=== PATIENT | female | born 1965 | race Caucasian/White ===

== ENCOUNTER 2017-12-15 11:48 | Emergency (ER) | payer BC ==
[2017-12-15 12:21] LABS: PTT 27.4 SEC (22.9-36.1); Prothrombin Time 13.2 SEC (12.0-14.7)
[2017-12-15 12:26] LABS: BHCG - Serum Negative (NEGATIVE); Pregs Control Background? CLEAR/WHITE (CLR/WHITE); Pregs Control Bar Appear? YES (CONTROL BAR)
[2017-12-15 12:31] LABS: ALT (SGPT) 18 U/L (8-55); AST (SGOT) 19 U/L (5-34); Albumin 4.1 g/dL (3.5-5.0); Alkaline Phosphatase 83 U/L (40-150); Anion Gap 13 mmol/L (10-20); BUN (Urea Nitrogen) 17 mg/dL (9.8-20.1); Bilirubin, Total 0.6 mg/dL (0.2-1.2); Calc. Creatinine Clearance 0 mL/min (70-130); Calcium 9.4 mg/dL (7.8-10.44); Carbon Dioxide 28 mmol/L (22-29); Chloride 99 mmol/L (98-107); Estimated GFR-MDRD 86; Globulin 2.9 g/dL (2.4-3.5); Glucose 134 mg/dL (70-105); Potassium 3.6 mmol/L (3.5-5.1); Sodium 136 mmol/L (136-145)
[2017-12-15 12:34] LABS: CKMB 2.3 ng/mL (0-6.6); Troponin I Less than 0.010 ng/mL (< 0.028)
[2017-12-15 12:36] LABS: Band 8 % (5-11); Eosinophils 1 % (0-10); Hemoglobin 13.7 g/dL (12.0-16.0); Lymphocytes 33 % (21-51); MDiff Complete? YES; Mean Corpuscular HGB CONC 33.6 g/dL (32.0-36.0); Mean Corpuscular Hemoglobin 32.5 pg (27.0-31.0); Mean Corpuscular Volume 96.9 fL (78.0-98.0); Mean Platelet Volume 6.2 fL (7.4-10.4); Monocytes 13 % (0-10); Neutrophil 45 % (42-75); Platelet Count 375 thou/uL (130-400); RBC Distribution Width 10.9 % (11.5-14.5); Red Blood Cell (RBC) Count 4.21 mill/uL (4.20-5.40); White Blood Cell (WBC) Count 7.1 thou/uL (4.8-10.8)
[2017-12-15] MEDS ORDERED: Adacel (T-DAP) 0.5 ML VIAL ONE (12:53)
[2017-12-15] MEDS ORDERED: Fentanyl 100 MCG/2 ML VIAL ONE ×2 (12:53→15:39)
--- NOTE | 2017-12-15 12:55 | RAD ---
RIGHT FORELEG RADIOGRAPHS 2 VIEWS: Date: 12/15/17 PROVIDED CLINICAL HISTORY: Trauma. FINDINGS: No comparisons. There are transversely oriented, acute-appearing fractures of the distal right tibial and fibular parth physes with apex anterior angulation at the fracture site. There is bridging ossification between the tibia and fibula just distal to the fracture location. Extensive heterotopic ossification is noted p aralleling the proximal tibia and fibular shafts. Partially visualized femoral nail and associated in terlocking screws associated with distal femur. IMPRESSION: Mildly displaced and angulated distal tibial and fibular shaft fractures. POS: SOLITARIO
--- NOTE | 2017-12-15 13:10 | RAD ---
PORTABLE SUPINE CHEST: Date: 12/15/17 PROVIDED CLINICAL HISTORY: Preop. FINDINGS: The cardiac silhouette appears prominent, likely at least partially on the basis of portable techniqu e. Ribbon rib appearance to the chest wall noted, which combined with the patient's fractures, suggests osteogenesis imperfecta. No focal consolidation evident. The supine nature of this study finnegan its sensitivity for detection of pleural fluid and pneumothorax, without gross evidence for such. IMPRESSION: No definite evidence for an acute cardiopulmonary process. POS: LINNEA
[2017-12-15] MEDS ORDERED: Morphine 10 MG/ML VIAL ONE (16:51)
--- NOTE | 2017-12-31 15:42 | EKG ---
Test Reason : TRAUMA 2 Blood Pressure : / mmHG Vent. Rate : 086 BPM Atrial Rate : 086 BPM P-R Int : 154 ms QRS Dur : 084 ms QT Int : 362 ms P-R-T Axes : 070 042 028 degrees QTc Int : 433 ms Normal sinus rhythm Nonspecific T wave abnormality Abnormal ECG Confirmed by PEDRO PABLO ROBERTO ([id number]), proposal editor RIKY MCGILL ([id number]) on 12/31/2017 3:41:44 PM Referred By: Confirmed By:PEDRO PABLO ROBERTO
== END 2017-12-15 17:00 | disposition short-term general hospital (02) ==
LOC: ERS 11:48
DX: S82.301A Unspecified fracture of lower end of right tibia, initial encounter for closed fracture (principal); S82.831A Other fracture of upper and lower end of right fibula, initial encounter for closed fracture; Q78.0 Osteogenesis imperfecta; E11.9 Type 2 diabetes mellitus without complications; I10 Essential (primary) hypertension; F41.9 Anxiety disorder, unspecified; Z79.899 Other long term (current) drug therapy; Z79.84 Long term (current) use of oral hypoglycemic drugs; W22.8XXA Striking against or struck by other objects, initial encounter
CPT/HCPCS: 29515; 71045; 80053; 82553; 84484; 84703; 85025; 85610; 85730; 90471; 90715; 93005; 94760; 96374; 96375; 96376; G0390; J2270; J3010